=== PATIENT | female | born 1985 ===

== ENCOUNTER 2017-12-04 09:54 | Day surgery (SDC) | payer OTHER ==
--- NOTE | 2017-12-04 10:24 | EDM.PDOC ---
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 Mccollum on 11/17/2017. At that time diagnosed with miscarriage was told that she would have some more bleeding. Had clots this morning. Review of Systems: As per history of present illness and below otherwise all systems reviewed and negative. Past medical history: As per history of present illness and as reviewed below otherwise noncontributory. Surgical history: As per history of present illness and as reviewed below otherwise noncontributory. Social history: No reported history of drug or alcohol abuse. Family history: As per history of present illness and as reviewed below otherwise noncontributory. Physical exam: Alert and oriented female answering questions appropriately has good eye contact. HEENT: Atraumatic, normocehpalic, pupils reactive, negative for conjunctival pallor or scleral icterus, mucous membranes moist, throat clear, neck supple, nontender, trachea midline. Lungs: Clear to auscultation, breath sounds equal bilaterally, chest non tender. Heart: S1S2, regular, negative for clicks, rubs, or JVD. Abdomen: Soft, nondistended, nontender. Negative for masses or hepatossplenmegaly. Negative for costovertebral tenderness. Pelvis: Stable nontender. Genitourinary: Deferred. Rectal: Deferred Extremities: Atraumatic, negative for cords or calf pain. Neurovascular unremarkable. Neuro: Awake, alert, oriented. Cranial nerves II through XII unremarkable. Cerebellum unremarkable. Motor and sensory unremarkable throughout. Exam nonfocal. Have notified 10:48 Dr. Mccollum that his patient is here she has heavy bleeding and increased pain heart rates elevated 150s, with Dr. Bernal verified to Dr. Mccollum pt is tachycardic., in pain and has vaginal bleeding. 11:32 Dr. Mccollum here. Procedure per Dr. Mccollum to remove products of conception ( SEE DICTATION OF DR. Mccollum) Orders per Dr. Mccollum Metergine: 0.2 mg if patient is doing well after 45 minutes may send her home. Any increased bleeding return to the emergency room Dr. Mccollum tomorrow if having any bleeding. 12:42 patient up tho the bathroom vaginal bleeding blood pressure dropped 98/61 patient placed in Trendelenburg are normal saline 5002. Dr. Mccollum notified of the patient and desire for observation he is agreeable to this course of action. Further discussion with the patient refuses admission to and is requesting a different doctor or transfer to different facility. Have discussed this with who has involved the dials supervisor and administration. Administration has approved for the ER to contact [facility], Dr. Lam , who will graciously assumed care of this patient. Dr. Bernal has contacted Dr. Mccollum regarding the situation. Have contacted Dr. Lam regarding patient blood pressure stabilized heart rate in the 150s. Ultrasound is at bedside at this time. She requested to be notified with the results of the ultrasound. Dr. Lam here and has assumed care of this [id number] Diagnostics: [CBC CMP UA quantitative hCG] Therapeutics: []Morphine 2 mg IV Normal saline 500 mg 2 Impression: [Miscarriage/ AB] Plan: []refer for observation to Dr. Lam. Definitive disposition and diagnosis as appropriate pending reevaluation and review of above. Onset: Gradual Duration: Day(s):, Getting Worse, Heavy Location: Reports: Abdomen Quality: Reports: Same as Previous Episode Severity: Moderate Improves with: Reports: None Worsens with: Reports: None cramping Pain Score (Numeric/FACES): 5 - Related Data Allergies Allergy/AdvReac Type Severity Reaction Status Date / Time Sulfa (Sulfonamide Allergy Vomiting Verified 12/04/17 10:05 Antibiotics) Home Meds: Home Meds . 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 ED EXAM - Physical Exam Exam: See Below (see dictation) Course - Vital Signs Last Recorded V/S: Last Vital Signs Temp 36.8 C 12/04/17 10:06 Pulse 110 H 12/04/17 15:08 Resp 24 H 12/04/17 15:08 BP 115/68 12/04/17 13:00 Pulse Ox 97 12/04/17 15:08 - Orders/Labs/Meds Orders: Active Orders 24 hr Category Date Time Status Admission Status [Patient Status] [ADT] Routine ADT 12/04/17 13:10 Active OB Transvaginal [US] Stat Exams 12/04/17 13:12 Taken RED BLOOD CELLS LP [BBK] Stat Lab 12/04/17 10:05 Results TYPE AND SCREEN [BBK] Stat Lab 12/04/17 10:05 Results UA W/MICROSCOPIC [URIN] Stat Lab 12/04/17 10:18 Ordered Doxycycline [Vibramycin] 100 mg Med 12/04/17 14:45 Active Sodium Chloride 0.9% [Normal Saline] 100 ml IV Q12H Medication Orders Doxycycline Hyclate 100 mg/ (Sodium Chloride) 100 mls @ 100 mls/hr IV Q12H LAKHWINDER Last Admin: 12/04/17 15:02 Dose: Labs: Laboratory Tests 12/04/17 12/04/17 12/04/17 Range/Units 10:05 10:15 10:15 WBC 8.48 (4.0-11.0) K/uL RBC 4.18 L (4.30-5.90) M/uL Hgb 11.6 L (12.0-16.0) g/dL Hct 34.4 L (36.0-46.0) % MCV 82.3 (80.0-98.0) fL MCH 27.8 (27.0-32.0) pg MCHC 33.7 (31.0-37.0) g/dL RDW Std Deviation 45.9 (28.0-62.0) fl RDW Coeff of Trixie 16 H (11.0-15.0) % Plt Count 295 (150-400) K/uL MPV 10.30 (7.40-12.00) fL Neut % (Auto) 68.1 (48.0-80.0) % Lymph % (Auto) 24.2 (16.0-40.0) % [place] % (Auto) 5.7 (0.0-15.0) % Eos % (Auto) 1.8 (0.0-7.0) % Baso % (Auto) 0.2 (0.0-1.5) % Neut # (Auto) 5.8 H (1.4-5.7) K/uL Lymph # (Auto) 2.1 (0.6-2.4) K/uL [place] # (Auto) 0.5 (0.0-0.8) K/uL Eos # (Auto) 0.2 (0.0-0.7) K/uL Baso # (Auto) 0.0 (0.0-0.1) K/uL Nucleated RBC % 0.0 /100WBC Nucleated RBCs # 0 K/uL Sodium 138 (136-146) mmol/L Potassium 4.1 (3.5-5.1) mmol/L Chloride 110 (98-110) mmol/L Carbon Dioxide 20 L (21-31) mmol/L BUN 8 (6.0-23.0) mg/dL Creatinine 0.6 (0.6-1.5) mg/dL Est Cr Clr Drug Dosing 129.69 mL/min Estimated GFR (MDRD) > 60.0 ml/min Glucose 93 (60-110) mg/dL Calcium 9.0 (8.8-10.8) mg/dL Total Bilirubin 0.3 (0.1-1.5) mg/dL AST 12 (5-40) IU/L ALT 9 (8-54) IU/L Alkaline Phosphatase 71 (40-150) Total Protein 6.5 (6.0-8.0) g/dL Albumin 3.7 (3.5-5.0) g/dL Globulin 2.8 (2.0-3.5) g/dL Albumin/Globulin Ratio 1.3 (1.3-2.8) HCG, Quant 2594.2 mIU/mL Blood Type A POSITIVE Antibody Screen NEGATIVE Crossmatch See Detail 12/04/17 Range/Units 13:46 WBC 14.97 H (4.0-11.0) K/uL RBC 3.72 L (4.30-5.90) M/uL Hgb 10.1 L (12.0-16.0) g/dL Hct 30.6 L (36.0-46.0) % MCV 82.3 (80.0-98.0) fL MCH 27.2 (27.0-32.0) pg MCHC 33.0 (31.0-37.0) g/dL RDW Std Deviation 47.8 (28.0-62.0) fl RDW Coeff of Trixie 16 H (11.0-15.0) % Plt Count 227 (150-400) K/uL MPV 10.20 (7.40-12.00) fL Neut % (Auto) 77.1 (48.0-80.0) % Lymph % (Auto) 16.4 (16.0-40.0) % [place] % (Auto) 5.8 (0.0-15.0) % Eos % (Auto) 0.5 (0.0-7.0) % Baso % (Auto) 0.2 (0.0-1.5) % Neut # (Auto) 11.5 H (1.4-5.7) K/uL Lymph # (Auto) 2.5 H (0.6-2.4) K/uL [place] # (Auto) 0.9 H (0.0-0.8) K/uL Eos # (Auto) 0.1 (0.0-0.7) K/uL Baso # (Auto) 0.0 (0.0-0.1) K/uL Nucleated RBC % 0.0 /100WBC Nucleated RBCs # 0 K/uL Sodium (136-146) mmol/L Potassium (3.5-5.1) mmol/L Chloride (98-110) mmol/L Carbon Dioxide (21-31) mmol/L BUN (6.0-23.0) mg/dL Creatinine (0.6-1.5) mg/dL Est Cr Clr Drug Dosing mL/min Estimated GFR (MDRD) ml/min Glucose (60-110) mg/dL Calcium (8.8-10.8) mg/dL Total Bilirubin (0.1-1.5) mg/dL AST (5-40) IU/L ALT (8-54) IU/L Alkaline Phosphatase (40-150) Total Protein (6.0-8.0) g/dL Albumin (3.5-5.0) g/dL Globulin (2.0-3.5) g/dL Albumin/Globulin Ratio (1.3-2.8) HCG, Quant mIU/mL Blood Type Antibody Screen Crossmatch Meds: Medications Generic Name Dose Route Start Last Admin Trade Name Hina PRN Reason Stop Dose Admin Doxycycline Hyclate 100 mg/ 100 mls @ 100 mls/hr 12/04/17 14:45 12/04/17 15: 02 Sodium Chloride IV Not Given Q12H LAKHWINDER Discontinued Medications Generic Name Dose Route Start Last Admin Trade Name Hina PRN Reason Stop Dose Admin Cefazolin Sodium Confirm 12/04/17 15:19 Ancef Administered 12/04/17 15:20 Dose 2 gm .ROUTE .STK-MED ONE Cefazolin Sodium/Dextrose Confirm 12/04/17 14:49 12/04/17 15:01 Ancef Administered 12/04/17 14:50 Not Given Dose 2 gm IV .STK-MED ONE Ephedrine Sulfate Confirm 12/04/17 15:28 Ephedrine Sulfate Administered 12/04/17 15:29 Dose 50 mg .ROUTE .STK-MED ONE Fentanyl Confirm 12/04/17 15:19 Sublimaze Administered 12/04/17 15:20 Dose 250 mcg .ROUTE .STK-MED ONE Hydromorphone HCl 1 mg 12/04/17 14:48 12/04/17 14:55 Dilaudid IM 12/04/17 14:49 1 mg ONETIME ONE Administration Hydromorphone HCl Confirm 12/04/17 14:49 12/04/17 15:01 Dilaudid Administered 12/04/17 14:50 Not Given Dose 1 mg .ROUTE .STK-MED ONE Sodium Chloride 1,000 mls @ 999 mls/hr 12/04/17 10:43 12/04/17 10:45 Normal Saline IV 12/04/17 11:43 999 mls/hr STAT ONE Administration Cefazolin Sodium/Dextrose 2 gm 50 mls @ 100 mls/hr 12/04/17 14:48 12/04/17 15 :01 / Premix IV 12/04/17 15:17 100 mls/hr ONETIME ONE Administration Sodium Chloride Confirm 12/04/17 15:19 Normal Saline Administered 12/04/17 15:20 Dose 20 mls @ as directed .ROUTE .STK-MED ONE Lidocaine Confirm 12/04/17 15:18 Xylocaine-Mpf 2% Administered 12/04/17 15:19 Dose 5 ml .ROUTE .STK-MED ONE Methylergonovine Maleate 0.2 mg 12/04/17 12:00 12/04/17 12:18 Methergine IM 12/04/17 12:01 0.2 mg NOW STA Administration Methylergonovine Maleate 0.2 mg 12/04/17 13:11 12/04/17 13:30 Methergine IM 12/04/17 13:12 0.2 mg Q4H ONE Administration Methylergonovine Maleate Confirm 12/04/17 15:08 Methergine Administered 12/04/17 15:09 Dose 0.2 mg .ROUTE .STK-MED ONE Midazolam HCl Confirm 12/04/17 15:19 Versed 1 Mg/Ml Administered 12/04/17 15:20 Dose 2 mg .ROUTE .STK-MED ONE Misoprostol Confirm 12/04/17 15:07 Cytotec Administered 12/04/17 15:08 Dose 1,000 mcg .ROUTE .STK-MED ONE Morphine Sulfate 2 mg 12/04/17 10:43 12/04/17 10:55 Morphine IVPUSH 12/04/17 10:44 2 mg ONETIME ONE Administration Morphine Sulfate Confirm 12/04/17 12:50 12/04/17 14:01 Morphine Administered 12/04/17 12:51 Not Given Dose 2 mg .ROUTE .STK-MED ONE Morphine Sulfate Confirm 12/04/17 13:46 12/04/17 15:01 Morphine Administered 12/04/17 13:47 Not Given Dose 2 mg .ROUTE .STK-MED ONE Morphine Sulfate 2 mg 12/04/17 13:00 12/04/17 13:00 Morphine IVPUSH 12/04/17 13:01 2 mg ONETIME ONE Administration Morphine Sulfate 2 mg 12/04/17 13:59 12/04/17 13:30 Morphine IVPUSH 12/04/17 14:00 2 mg ONETIME ONE Administration Ondansetron HCl 4 mg 12/04/17 10:44 12/04/17 10:55 Zofran IVPUSH 12/04/17 10:45 4 mg ONETIME ONE Administration Ondansetron HCl Confirm 12/04/17 15:18 Zofran Administered 12/04/17 15:19 Dose 4 mg .ROUTE .STK-MED ONE Propofol Confirm 12/04/17 15:18 Diprivan 20 Ml Administered 12/04/17 15:19 Dose 200 mg .ROUTE .STK-MED ONE Rocuronium [place] Confirm 12/04/17 15:18 Zemuron Administered 12/04/17 15:19 Dose 100 mg .ROUTE .STK-MED ONE Succinylcholine Chloride Confirm 12/04/17 15:18 Succinylcholine In Ns Pf Administered 12/04/17 15:19 Dose 200 mg .ROUTE .STK-MED ONE Tranexamic Acid Confirm 12/04/17 15:20 Cyklokapron Administered 12/04/17 15:21 Dose 2,000 mg .ROUTE .STK-MED ONE Departure - Departure Time of Disposition: 15:45 Disposition: Still A Patient 30 Condition: Fair Clinical Impression: Incomplete - Discharge Information - My Orders Last 24 Hours: My Active Orders 12/04/17 10:05 TYPE AND SCREEN [BBK] Stat 12/04/17 10:18 UA W/MICROSCOPIC [URIN] Stat 12/04/17 13:12 OB Transvaginal [US] Stat - Assessment/Plan Last 24 Hours: My Active Orders 12/04/17 10:05 TYPE AND SCREEN [BBK] Stat 12/04/17 10:18 UA W/MICROSCOPIC [URIN] Stat 12/04/17 13:12 OB Transvaginal [US] Stat
[2017-12-04 10:42] LABS: CHLORIDE,CL 110 mmol/L (98-110); SODIUM,NA 138 mmol/L (136-146)
[2017-12-04] MEDS ORDERED: Sodium Chloride 0.9% 1,000 ML IV ONE (10:43)
[2017-12-04] MEDS ORDERED: Morphine 2 MG/ML Syringe IVPUSH ONE ×3 (10:43→13:59)
[2017-12-04] MEDS ORDERED: Ondansetron 4 MG/2 ML SDV IVPUSH ONE (10:44)
[2017-12-04] MEDS ORDERED: Methylergonovine 0.2 MG/1 ML Amp IM STA (12:00)
[2017-12-04] MEDS ORDERED: Morphine 2 MG/ML Syringe ONE ×2 (12:50→13:46)
[2017-12-04] MEDS ORDERED: Sodium Chloride 0.9% 500 ML IV STA (13:00)
[2017-12-04] MEDS ORDERED: Methylergonovine 0.2 MG/1 ML Amp IM ONE (13:11)
[2017-12-04] MEDS ORDERED: Doxycycline 100 MG in Sodium Chloride 0.9% 100 ML IV SCH (14:45)
[2017-12-04] MEDS ORDERED: HYDROmorphone 1 MG/ML Syringe IM ONE (14:48)
[2017-12-04] MEDS ORDERED: ceFAZolin 2 GM in Premix Bag 1 BAG IV ONE (14:48)
[2017-12-04] MEDS ORDERED: HYDROmorphone 1 MG/ML Syringe ONE (14:49)
[2017-12-04] MEDS ORDERED: ceFAZolin/Dextrose,Iso-Osmotic 2 GM/50 ML Duplex Bag IV ONE (14:49)
[2017-12-04] MEDS ORDERED: Misoprostol 200 MCG Tab ONE (15:07)
[2017-12-04] MEDS ORDERED: Methylergonovine 0.2 MG/1 ML Amp ONE (15:08)
--- NOTE | 2017-12-04 15:09 | PCM.PREANE ---
Preanesthetic Assessment - Anesthesia/Transfusion/Family Hx Anesthesia History: Prior Anesthesia Without Reaction Other Type of Anesthesia Reaction Comment: Pt states she has been told in the past she is a "bad bleeder" during surg Family History of Anesthesia Reaction: No Transfusion History: No Prior Transfusion(s) - Review of Systems General: No Symptoms Pulmonary: No Symptoms Cardiovascular: No Symptoms Gastrointestinal: No Symptoms Neurological: No Symptoms Other: Reports: None - Physical Assessment NPO Status Date: 12/04/17 NPO Status Time: 09:00 Pulse: 110 O2 Sat by Pulse Oximetry: 97 Respiratory Rate: 24 Vital Signs: Last Vital Signs Temp 98.2 F 12/04/17 10:06 Pulse 89 12/04/17 13:00 Resp 24 H 12/04/17 12:45 BP 115/68 12/04/17 13:00 Pulse Ox 97 12/04/17 12:45 Height: 5 ft 7 in Weight: 77.111 kg ASA Class: 2E Mental Status: Alert & Oriented x3 Airway Class: Mallampati = 2 Dentition: Reports: Normal Dentition Thyro-Mental Finger Breadths: 3 Mouth Opening Finger Breadths: 3 ROM/Head Extension: Full Lungs: Clear to Auscultation, Normal Respiratory Effort Cardiovascular: Regular Rate, Regular Rhythm, Tachycardia - Lab Values: Laboratory Last Values WBC 14.97 K/uL (4.0-11.0) H 12/04/17 13:46 RBC 3.72 M/uL (4.30-5.90) L 12/04/17 13:46 Hgb 10.1 g/dL (12.0-16.0) L 12/04/17 13:46 Hct 30.6 % (36.0-46.0) L 12/04/17 13:46 MCV 82.3 fL (80.0-98.0) 12/04/17 13:46 MCH 27.2 pg (27.0-32.0) 12/04/17 13:46 MCHC 33.0 g/dL (31.0-37.0) 12/04/17 13:46 RDW Std Deviation 47.8 fl (28.0-62.0) 12/04/17 13:46 RDW Coeff of Trixie 16 % (11.0-15.0) H 12/04/17 13:46 Plt Count 227 K/uL (150-400) 12/04/17 13:46 MPV 10.20 fL (7.40-12.00) 12/04/17 13:46 Neut % (Auto) 77.1 % (48.0-80.0) 12/04/17 13:46 Lymph % (Auto) 16.4 % (16.0-40.0) 12/04/17 13:46 [place] % (Auto) 5.8 % (0.0-15.0) 12/04/17 13:46 Eos % (Auto) 0.5 % (0.0-7.0) 12/04/17 13:46 Baso % (Auto) 0.2 % (0.0-1.5) 12/04/17 13:46 Neut # (Auto) 11.5 K/uL (1.4-5.7) H 12/04/17 13:46 Lymph # (Auto) 2.5 K/uL (0.6-2.4) H 12/04/17 13:46 [place] # (Auto) 0.9 K/uL (0.0-0.8) H 12/04/17 13:46 Eos # (Auto) 0.1 K/uL (0.0-0.7) 12/04/17 13:46 Baso # (Auto) 0.0 K/uL (0.0-0.1) 12/04/17 13:46 Nucleated RBC % 0.0 /100WBC 12/04/17 13:46 Nucleated RBCs # 0 K/uL 12/04/17 13:46 Sodium 138 mmol/L (136-146) 12/04/17 10:15 Potassium 4.1 mmol/L (3.5-5.1) 12/04/17 10:15 Chloride 110 mmol/L (98-110) 12/04/17 10:15 Carbon Dioxide 20 mmol/L (21-31) L 12/04/17 10:15 BUN 8 mg/dL (6.0-23.0) 12/04/17 10:15 Creatinine 0.6 mg/dL (0.6-1.5) 12/04/17 10:15 Est Cr Clr Drug Dosing 129.69 mL/min 12/04/17 10:15 Estimated GFR (MDRD) > 60.0 ml/min 12/04/17 10:15 Glucose 93 mg/dL (60-110) 12/04/17 10:15 Calcium 9.0 mg/dL (8.8-10.8) 12/04/17 10:15 Total Bilirubin 0.3 mg/dL (0.1-1.5) 12/04/17 10:15 AST 12 IU/L (5-40) 12/04/17 10:15 ALT 9 IU/L (8-54) 12/04/17 10:15 Alkaline Phosphatase 71 (40-150) 12/04/17 10:15 Total Protein 6.5 g/dL (6.0-8.0) 12/04/17 10:15 Albumin 3.7 g/dL (3.5-5.0) 12/04/17 10:15 Globulin 2.8 g/dL (2.0-3.5) 12/04/17 10:15 Albumin/Globulin Ratio 1.3 (1.3-2.8) 12/04/17 10:15 HCG, Quant 2594.2 mIU/mL 12/04/17 10:15 Blood Type A POSITIVE 12/04/17 10:05 Antibody Screen NEGATIVE 12/04/17 10:05 Crossmatch See Detail 12/04/17 10:05 - Allergies Allergies/Adverse Reactions: Allergies Allergy/AdvReac Type Severity Reaction Status Date / Time Sulfa (Sulfonamide Allergy Vomiting Verified 12/04/17 10:05 Antibiotics) - Acknowledgements Anesthesia Type Planned: General Anesthesia Pt an Appropriate Candidate for the Planned Anesthesia: Yes Alternatives and Risks of Anesthesia Discussed w Pt/Guardian: Yes Pt/Guardian Understands and Agrees with Anesthesia Plan: Yes PreAnesthesia Questionnaire - Past Health History Medical/Surgical History: Denies Medical/Surgical History HEENT History: Reports: None Cardiovascular History: Reports: None Respiratory History: Reports: None Gastrointestinal History: Reports: GERD Genitourinary History: Reports: None 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 , 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 LMP (Approximate): Musculoskeletal History: Reports: None Neurological History: Reports: None Psychiatric History: Reports: None Endocrine/Metabolic History: Reports: None Hematologic History: Reports: Anemia, Other (See Below) (Acute bleeding) Immunologic History: Reports: None Oncologic (Cancer) History: Reports: None Dermatologic History: Reports: None - Infectious Disease History Infectious Disease History: Reports: None - Past Surgical History Other Surgical History Comment: Liposuction - SUBSTANCE USE Smoking Status *Q: Never Smoker Days Per Week of Alcohol Use: 1 Number of Drinks Per Day: 2 Total Drinks Per Week: 2 Recreational Drug Use History: No - HOME MEDS Home Medications: Home Meds . [No Known Home Meds] 12/04/17 [History] - CURRENT (IN HOUSE) MEDS Current Meds: Current Medications Doxycycline Hyclate 100 mg/ (Sodium Chloride) 100 mls @ 100 mls/hr IV Q12H LAKHWINDER Last Admin: 12/04/17 15:02 Dose: Not Given Cefazolin Sodium/Dextrose 2 gm (/ Premix) 50 mls @ 100 mls/hr IV ONETIME ONE Stop: 12/04/17 15:17 Last Admin: 12/04/17 15:01 Dose: 100 mls/hr Discontinued Medications Cefazolin Sodium/Dextrose (Ancef) Confirm Administered Dose 2 gm IV .STK-MED ONE Stop: 12/04/17 14:50 Last Admin: 12/04/17 15:01 Dose: Not Given Hydromorphone HCl (Dilaudid) 1 mg IM ONETIME ONE Stop: 12/04/17 14:49 Last Admin: 12/04/17 14:55 Dose: 1 mg Hydromorphone HCl (Dilaudid) Confirm Administered Dose 1 mg .ROUTE .STK-MED ONE Stop: 12/04/17 14:50 Last Admin: 12/04/17 15:01 Dose: Not Given Sodium Chloride (Normal Saline) 1,000 mls @ 999 mls/hr IV STAT ONE Stop: 12/04/17 11:43 Last Admin: 12/04/17 10:45 Dose: 999 mls/hr Methylergonovine Maleate (Methergine) 0.2 mg IM NOW STA Stop: 12/04/17 12:01 Last Admin: 12/04/17 12:18 Dose: 0.2 mg Methylergonovine Maleate (Methergine) 0.2 mg IM Q4H ONE Stop: 12/04/17 13:12 Last Admin: 12/04/17 13:30 Dose: 0.2 mg Morphine Sulfate (Morphine) 2 mg IVPUSH ONETIME ONE Stop: 12/04/17 10:44 Last Admin: 12/04/17 10:55 Dose: 2 mg Morphine Sulfate (Morphine) Confirm Administered Dose 2 mg .ROUTE .STK-MED ONE Stop: 12/04/17 12:51 Last Admin: 12/04/17 14:01 Dose: Not Given Morphine Sulfate (Morphine) Confirm Administered Dose 2 mg .ROUTE .STK-MED ONE Stop: 12/04/17 13:47 Last Admin: 12/04/17 15:01 Dose: Not Given Morphine Sulfate (Morphine) 2 mg IVPUSH ONETIME ONE Stop: 12/04/17 13:01 Last Admin: 12/04/17 13:00 Dose: 2 mg Morphine Sulfate (Morphine) 2 mg IVPUSH ONETIME ONE Stop: 12/04/17 14:00 Last Admin: 12/04/17 13:30 Dose: 2 mg Ondansetron HCl (Zofran) 4 mg IVPUSH ONETIME ONE Stop: 12/04/17 10:45 Last Admin: 12/04/17 10:55 Dose: 4 mg
[2017-12-04] MEDS ORDERED: Lidocaine 2% 5 ML SDV ONE (15:18)
[2017-12-04] MEDS ORDERED: Ondansetron 4 MG/2 ML SDV ONE (15:18)
[2017-12-04] MEDS ORDERED: Succinylcholine/Normal Saline 200 MG/10 ML Syringe ONE (15:18)
[2017-12-04] MEDS ORDERED: Propofol 200 MG/20 ML SDV ONE (15:18)
[2017-12-04] MEDS ORDERED: Rocuronium 10 MG/ML 10 ML Syringe ONE (15:18)
[2017-12-04] MEDS ORDERED: fentaNYL 250 MCG/5 ML SDV ONE (15:19)
[2017-12-04] MEDS ORDERED: Sodium Chloride 0.9% 20 ML ONE (15:19)
[2017-12-04] MEDS ORDERED: ceFAZolin 1 GM Vial ONE (15:19)
[2017-12-04] MEDS ORDERED: Midazolam 1 MG/ML 2 ML SDV ONE (15:19)
[2017-12-04] MEDS ORDERED: ePHEDrine 50 MG/ML SDV ONE (15:28)
[2017-12-04] MEDS ORDERED: Promethazine 25 MG/ML SDV IM ONE (16:32)
[2017-12-04] MEDS ORDERED: fentaNYL 100 MCG/2 ML SDV IVPUSH PRN (16:32)
[2017-12-04] MEDS ORDERED: Acetaminophen/oxyCODONE 325-5 MG Tab PO PRN ×2 (16:35)
[2017-12-04] MEDS ORDERED: Ibuprofen 800 MG Tab PO PRN (16:39)
--- NOTE | 2017-12-04 17:23 | PCM.POSTAN ---
POST ANESTHESIA ASSESSMENT - MENTAL STATUS Mental Status: Alert, Oriented - VITAL SIGNS Pulse Rate: 94 SaO2: 99 Resp Rate: 14 Blood Pressure: 97/53 - RESPIRATORY Respiratory Status: Respiratory Rate WNL, Airway Patent, O2 Saturation Stable - CARDIOVASCULAR CV Status: Pulse Rate WNL, Blood Pressure Stable - GASTROINTESTINAL GI Status: No Symptoms - POST OP HYDRATION Hydration Status: Adequate & Stable - OBSERVATIONS Free Text/Narrative:: Recheck H/H has dropped significantly from ER admission values. Discussed with Dr Lam and she wishes to transfuse 2 units in PACU. Both units were administered in PACU. VSS, patient was informed and agrees with the current treatment plan.
--- NOTE | 2017-12-04 17:30 | HP ---
DATE OF : 1985 PRIMARY CARE PHYSICIAN: None PCP PRESENTING COMPLAINT: Miscarriage with vaginal bleeding. HISTORY: The patient is a 32-year-old G4, P0-0-3-0, who was diagnosed with a blighted ovum on the 18 of November at a routine clinic appointment with Dr. Mccollum. Reports by dates, she is meant to be approximately 12 weeks , but she was told the gestational sac was approximately 11 weeks size. She reports that management options were discussed with her, she opted for expected management and was supposed to be returned to the clinic a week later for further discussion if she had not passed the tissue by then, but she was unable to keep that appointment. She reports that she had been spotting for over a week now and presented today to the ER due to increased bleeding with passage of clots associated with severe lower abdominal pain. On arrival to the emergency room, she was evaluated by the emergency room personnel and also was evaluated by her primary provider Dr. Mccollum, who proceeded to remove some products of conception and gave her a dose of Methergine and the bleeding slowed down. He had discussed with the patient that she could be discharged home after a period of observation in the ER with followup in the clinic. The patient reported that she continued to bleed and she got up to go to the bathroom, felt very dizzy and had a vasovagal attack, with blood pressure dropped down to the 90s over 50s and tachycardia. She also noted that her vaginal bleeding increased, so did abdominal cramps. Dr. Mccollum was called back, but this patient at this point in time refused to be evaluated by Dr. Mccollum, hence I was called in to see the patient. Dr. Mccollum did call me to inform me about his management of the patient in the ER before I proceeded to see her. The patient had a baseline hemoglobin of 11.6g/dl on arrival and when it was repeated about 2 hours later, it had dropped to 10.1g/dl and on telemetry, her heart rate was in the 120s with blood pressures maintaining around 100s over 70s. She also had a pelvic ultrasound, which I had ordered before I got to the emergency room. I reviewed, the patient was in considerable amount of pain. and I was able to retrieve products of conception from the vagina. I reviewed the sonogram images, which showed a thickened endometrial lining at 25 mm with increased vascularity suggestive of retained products of conception. 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 Last menstrual period in August 2017. In a stable relationship. Denied history of sexually transmitted disease. PAST OBSTETRIC HISTORY: including current . 2004- Induced TOP(Ist trimester) 2013- Spontaneous miscarriage at about 8 weeks gestation 2017- demise at 21 weeks due to placental abruption PAST MEDICAL HISTORY: None. PAST SURGICAL HISTORY: D and C for retained placenta in 2017 Liposuction. FAMILY HISTORY: Noncontributory. SOCIAL HISTORY: Non smoker, denies use of recreational or illicit drugs. PHYSICAL EXAMINATION: GENERAL: The patient is alert and oriented, in painful distress lying in a position. VITAL SIGNS: Temp: 36.8, AR: 125 on telemetry, BP: 115/60,saturation 97% on room air. CHEST: Clear to auscultation bilaterally. CARDIOVASCULAR: Heart sounds 1 and 2. No murmurs. ABDOMEN: Soft. Tender lower abdominal region with guarding, but no rebound tenderness. SPECULUM: Approximately 20 mL of blood clots removed. Products of conception removed from the vagina. Products of conception visible at the cervical os which I was unable to retrieved with a ring forceps. Cervical os approximately 2-3 cm dilated. LABORATORY RESULTS: WBC: 14.9, Hemoglobin of 10.1 with hematocrit of 30.6, Platelets of 227, Chemistry was normal. Beta HCG quantitative was 2594. She is A positive. ASSESSMENT AND PLAN: A 32-year-old G4, P0-0-3-0 with incomplete spontaneous miscarriage. Management options were reviewed with the patient at this stage. I explained that she does have retained products of conception, given the clinical picture I would recommend we proceed with Dilatation and curettage to prevent further blood loss. She seemed hesitant about surgery. I also reviewed medical option with her, which would entail Cytotec with pain management while she is in the hospital. Benefits and risks of both procedures were discussed and reviewed with her and her partner. She opted to proceed with surgical management. The risk of D and C that was discussed include, but not limited to bleeding, injury to the uterus and infection. Ancef was given preop. She will be observed for a couple of hours after the surgery and should be able to go home later on tonight as long as she is hemodynamically stable. The patient also understands that there is an increased risk of her having blood transfusion. We will proceed with the procedure as above. JASMINE / ALVARO /[id number] MTDD
--- NOTE | 2017-12-04 21:12 | OR ---
SURGEON: Majo Lam MD DATE OF PROCEDURE: 12/04/2017 PREOPERATIVE DIAGNOSIS: Incomplete spontaneous . POSTOP DIAGNOSIS: Incomplete spontaneous . PROCEDURE: Suction, dilatation, and curettage. ANESTHESIA: General endotracheal. ESTIMATED BLOOD LOSS: 300 mL. IV FLUIDS: 2200mls of crystalloids COMPLICATIONS: None. DISPOSITION: The patient is stable to recovery room. PATHOLOGY: Products of conception FINDINGS The patient was found to have at least 100 mL of clotted blood mixed with tissue in the vaginal vault with significant amount of products of conception at the os. The os was dilated to 3 cm. BRIEF HISTORY: The patient is a 32-year-old, G4, P0-0-3-0, who presented to the ER with ongoing miscarriage and was found to have incomplete miscarriage with significant amount of retained products of conception. With on going bleeding, tachycardia and low blood pressure, she accepted to proceed with surgical management. The risks and benefits of the procedure were discussed in detail with her including but not limited to bleeding, infection, uterine perforation with injury to surrounding organs. DESCRIPTION OF PROCEDURE: She was taken to the operating room, where induction of general anesthesia was performed without difficulty. She was placed in dorsal lithotomy position and prepped and draped in normal sterile fashion for vaginal surgery. Examination under anesthesia revealed the aforementioned findings. Appropriate time-out was held. The bivalve speculum was then placed into the vagina. Products and blood clots were removed.The anterior lip of the cervix was grasped with ring forceps. Then, using a #11 curved plastic suction cannula, suction curettage was performed. Copious amount of products of conception were retrieved. This was then followed by gentle curettage using a wide bore curette until the gritty sensation of the uterus was felt. Bimanual uterine massage was performed, and the uterus was well contracted. A transabdominal ultrasound was performed, the uterus was empty with an endometrial lining was found of 8 mm. All instruments were removed from the patient's vagina. All instrument, sponge counts were correct at the end of the procedure. The patient was noted to be hypotensive during the procedure. Blood pressures of 70s/50s. A 2nd IV line was inserted by Anesthesia with bolus of IV fluid given. She will get a repeat H and H performed in the recovery room. She was taken to the recovery room in stable condition. JASMINE / MODJack /[id number] SONIDO
[2017-12-05] MEDS ORDERED: Acetaminophen 325 MG Tab PO ONE (08:06)
--- NOTE | 2017-12-05 08:11 | PCM.SURGPN ---
- General Info POD#: 0 Functional Status: Reports: Pain Controlled, Tolerating Diet, Ambulating, Urinating, Other (Minimal vaginal bleeding) - Review of Systems General: Denies: Weakness, Fatigue, Malaise HEENT: Reports: Headaches Pulmonary: Denies: Shortness of Breath, Pleuritic Chest Pain Cardiovascular: Denies: Chest Pain, Palpitations, Dyspnea on Exertion, Lightheadedness Gastrointestinal: Reports: No Symptoms Genitourinary: Denies: Dysuria Musculoskeletal: Reports: No Symptoms Skin: Reports: No Symptoms Neurological: Reports: No Symptoms Psychiatric: Reports: No Symptoms - Patient Data Vitals - Most Recent: Last Vital Signs Temp 36.6 C 12/05/17 03:46 Pulse 80 12/05/17 03:46 Resp 18 12/05/17 03:46 BP 90/50 L 12/05/17 03:46 Pulse Ox 96 12/05/17 03:46 Weight - Most Recent: 170 lb I&O - Last 24 Hours: Intake & Output 12/04/17 12/05/17 12/05/17 22:59 06:59 14:59 Intake Total 2800 500 Output Total 50 600 Balance 2750 -100 Lab Results Last 24 Hrs: Laboratory Results - last 24 hr 12/04/17 12/04/17 12/04/17 Range/Units 10:05 10:15 10:15 WBC 8.48 (4.0-11.0) K/uL RBC 4.18 L (4.30-5.90) M/uL Hgb 11.6 L (12.0-16.0) g/dL Hct 34.4 L (36.0-46.0) % MCV 82.3 (80.0-98.0) fL MCH 27.8 (27.0-32.0) pg MCHC 33.7 (31.0-37.0) g/dL RDW Std Deviation 45.9 (28.0-62.0) fl RDW Coeff of Trixie 16 H (11.0-15.0) % Plt Count 295 (150-400) K/uL MPV 10.30 (7.40-12.00) fL Neut % (Auto) 68.1 (48.0-80.0) % Lymph % (Auto) 24.2 (16.0-40.0) % [place] % (Auto) 5.7 (0.0-15.0) % Eos % (Auto) 1.8 (0.0-7.0) % Baso % (Auto) 0.2 (0.0-1.5) % Neut # (Auto) 5.8 H (1.4-5.7) K/uL Lymph # (Auto) 2.1 (0.6-2.4) K/uL [place] # (Auto) 0.5 (0.0-0.8) K/uL Eos # (Auto) 0.2 (0.0-0.7) K/uL Baso # (Auto) 0.0 (0.0-0.1) K/uL Nucleated RBC % 0.0 /100WBC Nucleated RBCs # 0 K/uL Sodium 138 (136-146) mmol/L Potassium 4.1 (3.5-5.1) mmol/L Chloride 110 (98-110) mmol/L Carbon Dioxide 20 L (21-31) mmol/L BUN 8 (6.0-23.0) mg/dL Creatinine 0.6 (0.6-1.5) mg/dL Est Cr Clr Drug Dosing 129.69 mL/min Estimated GFR (MDRD) > 60.0 ml/min Glucose 93 (60-110) mg/dL Calcium 9.0 (8.8-10.8) mg/dL Total Bilirubin 0.3 (0.1-1.5) mg/dL AST 12 (5-40) IU/L ALT 9 (8-54) IU/L Alkaline Phosphatase 71 (40-150) Total Protein 6.5 (6.0-8.0) g/dL Albumin 3.7 (3.5-5.0) g/dL Globulin 2.8 (2.0-3.5) g/dL Albumin/Globulin Ratio 1.3 (1.3-2.8) HCG, Quant 2594.2 mIU/mL Urine Color Urine Appearance Urine pH (5.0-8.0) Ur Specific Union (1.001-1.035) Urine Protein (NEGATIVE) mg/dL Urine Glucose (UA) (NEGATIVE) mg/dL Urine Ketones (NEGATIVE) mg/dL Urine Occult Blood (NEGATIVE) Urine Nitrite (NEGATIVE) Urine Bilirubin (NEGATIVE) Urine Urobilinogen (<2.0) EU/dL Ur Leukocyte Esterase (NEGATIVE) Urine RBC (0-2/HPF) Urine WBC (0-5/HPF) Ur Epithelial Cells (NONE-FEW) Urine Bacteria (NEGATIVE) Blood Type A POSITIVE Antibody Screen NEGATIVE Crossmatch See Detail 12/04/17 12/04/17 12/04/17 Range/Units 13:46 16:33 19:45 WBC 14.97 H (4.0-11.0) K/uL RBC 3.72 L (4.30-5.90) M/uL Hgb 10.1 L 7.4 L (12.0-16.0) g/dL Hct 30.6 L 22.4 L (36.0-46.0) % MCV 82.3 (80.0-98.0) fL MCH 27.2 (27.0-32.0) pg MCHC 33.0 (31.0-37.0) g/dL RDW Std Deviation 47.8 (28.0-62.0) fl RDW Coeff of Trixie 16 H (11.0-15.0) % Plt Count 227 (150-400) K/uL MPV 10.20 (7.40-12.00) fL Neut % (Auto) 77.1 (48.0-80.0) % Lymph % (Auto) 16.4 (16.0-40.0) % [place] % (Auto) 5.8 (0.0-15.0) % Eos % (Auto) 0.5 (0.0-7.0) % Baso % (Auto) 0.2 (0.0-1.5) % Neut # (Auto) 11.5 H (1.4-5.7) K/uL Lymph # (Auto) 2.5 H (0.6-2.4) K/uL [place] # (Auto) 0.9 H (0.0-0.8) K/uL Eos # (Auto) 0.1 (0.0-0.7) K/uL Baso # (Auto) 0.0 (0.0-0.1) K/uL Nucleated RBC % 0.0 /100WBC Nucleated RBCs # 0 K/uL Sodium (136-146) mmol/L Potassium (3.5-5.1) mmol/L Chloride (98-110) mmol/L Carbon Dioxide (21-31) mmol/L BUN (6.0-23.0) mg/dL Creatinine (0.6-1.5) mg/dL Est Cr Clr Drug Dosing mL/min Estimated GFR (MDRD) ml/min Glucose (60-110) mg/dL Calcium (8.8-10.8) mg/dL Total Bilirubin (0.1-1.5) mg/dL AST (5-40) IU/L ALT (8-54) IU/L Alkaline Phosphatase (40-150) Total Protein (6.0-8.0) g/dL Albumin (3.5-5.0) g/dL Globulin (2.0-3.5) g/dL Albumin/Globulin Ratio (1.3-2.8) HCG, Quant mIU/mL Urine Color YELLOW Urine Appearance SLT CLOUDY Urine pH 5.5 (5.0-8.0) Ur Specific [place] >= 1.030 (1.001-1.035) Urine Protein TRACE (NEGATIVE) mg/dL Urine Glucose (UA) NEGATIVE (NEGATIVE) mg/dL Urine Ketones TRACE H (NEGATIVE) mg/dL Urine Occult Blood LARGE H (NEGATIVE) Urine Nitrite NEGATIVE (NEGATIVE) Urine Bilirubin NEGATIVE (NEGATIVE) Urine Urobilinogen 0.2 (<2.0) EU/dL Ur Leukocyte Esterase NEGATIVE (NEGATIVE) Urine RBC >100 H (0-2/HPF) Urine WBC 0-3 (0-5/HPF) Ur Epithelial Cells OCCASIONAL (NONE-FEW) Urine Bacteria FEW (NEGATIVE) Blood Type Antibody Screen Crossmatch 12/05/17 Range/Units 05:03 WBC (4.0-11.0) K/uL RBC (4.30-5.90) M/uL Hgb 8.3 L (12.0-16.0) g/dL Hct 24.6 L (36.0-46.0) % MCV (80.0-98.0) fL MCH (27.0-32.0) pg MCHC (31.0-37.0) g/dL RDW Std Deviation (28.0-62.0) fl RDW Coeff of Trixie (11.0-15.0) % Plt Count (150-400) K/uL MPV (7.40-12.00) fL Neut % (Auto) (48.0-80.0) % Lymph % (Auto) (16.0-40.0) % [place] % (Auto) (0.0-15.0) % Eos % (Auto) (0.0-7.0) % Baso % (Auto) (0.0-1.5) % Neut # (Auto) (1.4-5.7) K/uL Lymph # (Auto) (0.6-2.4) K/uL [place] # (Auto) (0.0-0.8) K/uL Eos # (Auto) (0.0-0.7) K/uL Baso # (Auto) (0.0-0.1) K/uL Nucleated RBC % /100WBC Nucleated RBCs # K/uL Sodium (136-146) mmol/L Potassium (3.5-5.1) mmol/L Chloride (98-110) mmol/L Carbon Dioxide (21-31) mmol/L BUN (6.0-23.0) mg/dL Creatinine (0.6-1.5) mg/dL Est Cr Clr Drug Dosing mL/min Estimated GFR (MDRD) ml/min Glucose (60-110) mg/dL Calcium (8.8-10.8) mg/dL Total Bilirubin (0.1-1.5) mg/dL AST (5-40) IU/L ALT (8-54) IU/L Alkaline Phosphatase (40-150) Total Protein (6.0-8.0) g/dL Albumin (3.5-5.0) g/dL Globulin (2.0-3.5) g/dL Albumin/Globulin Ratio (1.3-2.8) HCG, Quant mIU/mL Urine Color Urine Appearance Urine pH (5.0-8.0) Ur Specific [place] (1.001-1.035) Urine Protein (NEGATIVE) mg/dL Urine Glucose (UA) (NEGATIVE) mg/dL Urine Ketones (NEGATIVE) mg/dL Urine Occult Blood (NEGATIVE) Urine Nitrite (NEGATIVE) Urine Bilirubin (NEGATIVE) Urine Urobilinogen (<2.0) EU/dL Ur Leukocyte Esterase (NEGATIVE) Urine RBC (0-2/HPF) Urine WBC (0-5/HPF) Ur Epithelial Cells (NONE-FEW) Urine Bacteria (NEGATIVE) Blood Type Antibody Screen Crossmatch Med Orders - Current: Current Medications Fentanyl (Sublimaze) 50 mcg IVPUSH Q5M PRN PRN Reason: Pain (severe 7-10) Stop: 12/05/17 16:33 Ibuprofen (Motrin) 800 mg PO Q8H PRN PRN Reason: Pain Last Admin: 12/04/17 18:37 Dose: 800 mg Oxycodone/Acetaminophen (Percocet 325-5 Mg) 1 tab PO Q4H PRN PRN Reason: Pain Oxycodone/Acetaminophen (Percocet 325-5 Mg) 2 tab PO Q4H PRN PRN Reason: Pain Discontinued Medications Cefazolin Sodium (Ancef) Confirm Administered Dose 2 gm .ROUTE .STK-MED ONE Stop: 12/04/17 15:20 Cefazolin Sodium/Dextrose (Ancef) Confirm Administered Dose 2 gm IV .STK-MED ONE Stop: 12/04/17 14:50 Last Admin: 12/04/17 15:01 Dose: Not Given Ephedrine Sulfate (Ephedrine Sulfate) Confirm Administered Dose 50 mg .ROUTE .STK-MED ONE Stop: 12/04/17 15:29 Fentanyl (Sublimaze) Confirm Administered Dose 250 mcg .ROUTE .STK-MED ONE Stop: 12/04/17 15:20 Hydromorphone HCl (Dilaudid) 1 mg IM ONETIME ONE Stop: 12/04/17 14:49 Last Admin: 12/04/17 14:55 Dose: 1 mg Hydromorphone HCl (Dilaudid) Confirm Administered Dose 1 mg .ROUTE .STK-MED ONE Stop: 12/04/17 14:50 Last Admin: 12/04/17 15:01 Dose: Not Given Sodium Chloride (Normal Saline) 1,000 mls @ 999 mls/hr IV STAT ONE Stop: 12/04/17 11:43 Last Admin: 12/04/17 10:45 Dose: 999 mls/hr Doxycycline Hyclate 100 mg/ (Sodium Chloride) 100 mls @ 100 mls/hr IV Q12H [id number] Last Admin: 12/04/17 15:02 Dose: Not Given Cefazolin Sodium/Dextrose 2 gm (/ Premix) 50 mls @ 100 mls/hr IV ONETIME ONE Stop: 12/04/17 15:17 Last Admin: 12/04/17 15:01 Dose: 100 mls/hr Sodium Chloride (Normal Saline) Confirm Administered Dose 20 mls @ as directed .ROUTE .STK-MED ONE Stop: 12/04/17 15:20 Sodium Chloride (Normal Saline) 500 mls @ 999 mls/hr IV NOW STA Stop: 12/04/17 13:30 Last Admin: 12/04/17 13:00 Dose: 999 mls/hr Lidocaine (Xylocaine-Mpf 2%) Confirm Administered Dose 5 ml .ROUTE .STK-MED ONE Stop: 12/04/17 15:19 Methylergonovine Maleate (Methergine) 0.2 mg IM NOW STA Stop: 12/04/17 12:01 Last Admin: 12/04/17 12:18 Dose: 0.2 mg Methylergonovine Maleate (Methergine) 0.2 mg IM Q4H ONE Stop: 12/04/17 13:12 Last Admin: 12/04/17 13:30 Dose: 0.2 mg Methylergonovine Maleate (Methergine) Confirm Administered Dose 0.2 mg .ROUTE .STK-MED ONE Stop: 12/04/17 15:09 Midazolam HCl (Versed 1 Mg/Ml) Confirm Administered Dose 2 mg .ROUTE .STK-MED ONE Stop: 12/04/17 15:20 Misoprostol (Cytotec) Confirm Administered Dose 1,000 mcg .ROUTE .STK-MED ONE Stop: 12/04/17 15:08 Morphine Sulfate (Morphine) 2 mg IVPUSH ONETIME ONE Stop: 12/04/17 10:44 Last Admin: 12/04/17 10:55 Dose: 2 mg Morphine Sulfate (Morphine) Confirm Administered Dose 2 mg .ROUTE .STK-MED ONE Stop: 12/04/17 12:51 Last Admin: 12/04/17 14:01 Dose: Not Given Morphine Sulfate (Morphine) Confirm Administered Dose 2 mg .ROUTE .STK-MED ONE Stop: 12/04/17 13:47 Last Admin: 12/04/17 15:01 Dose: Not Given Morphine Sulfate (Morphine) 2 mg IVPUSH ONETIME ONE Stop: 12/04/17 13:01 Last Admin: 12/04/17 13:00 Dose: 2 mg Morphine Sulfate (Morphine) 2 mg IVPUSH ONETIME ONE Stop: 12/04/17 14:00 Last Admin: 12/04/17 13:30 Dose: 2 mg Ondansetron HCl (Zofran) 4 mg IVPUSH ONETIME ONE Stop: 12/04/17 10:45 Last Admin: 12/04/17 10:55 Dose: 4 mg Ondansetron HCl (Zofran) Confirm Administered Dose 4 mg .ROUTE .STK-MED ONE Stop: 12/04/17 15:19 Promethazine HCl (Phenergan) 12.5 mg IM ONETIME ONE Stop: 12/04/17 16:33 Propofol (Diprivan 20 Ml) Confirm Administered Dose 200 mg .ROUTE .STK-MED ONE Stop: 12/04/17 15:19 Rocuronium [place] (Zemuron) Confirm Administered Dose 100 mg .ROUTE .STK-MED ONE Stop: 12/04/17 15:19 Succinylcholine Chloride (Succinylcholine In Ns Pf) Confirm Administered Dose 200 mg .ROUTE .STK-MED ONE Stop: 12/04/17 15:19 Tranexamic Acid (Cyklokapron) Confirm Administered Dose 2,000 mg .ROUTE .STK- MED ONE Stop: 12/04/17 15:21 - Exam General: Alert, Oriented HEENT: Pupils Equal Lungs: Clear to Auscultation, Normal Respiratory Effort Cardiovascular: Regular Rate, Regular Rhythm GI/Abdominal Exam: Soft, Non-Tender Extremities: No Pedal Edema Skin: Warm Psy/Mental Status: Alert, Normal Affect, Normal Mood - Problem List & Annotations (1) Status post dilatation and curettage SNOMED Code(s): 599891453 Code(s): Z98.890 - OTHER SPECIFIED POSTPROCEDURAL STATES Status: Acute Current Visit: Yes (2) Incomplete SNOMED Code(s): 266667905 Code(s): O03.4 - INCOMPLETE SPONTANEOUS WITHOUT COMPLICATION Status: Acute Current Visit: Yes - Problem List Review Problem List Initiated/Reviewed/Updated: Yes - My Orders Last 24 Hours: Active Orders 24 hr Category Date Time Status Admission Status [Patient Status] [ADT] Routine ADT 12/04/17 13:10 Active Ambulate [RC] PER UNIT ROUTINE Care 12/04/17 16:35 Active Intake and Output [RC] PRN Care 12/04/17 16:35 Active Notify Provider Vital Signs [RC] PRN Care 12/04/17 16:38 Active Up With Assistance [RC] PER UNIT ROUTINE Care 12/04/17 16:35 Active Regular Diet [DIET] Diet 12/04/17 Dinner Active OB Transvaginal [US] Stat Exams 12/04/17 13:12 Taken Acetaminophen/oxyCODONE [Percocet 325-5 MG] Med 12/04/17 16:35 Active 1 tab PO Q4H PRN Acetaminophen/oxyCODONE [Percocet 325-5 MG] Med 12/04/17 16:35 Active 2 tab PO Q4H PRN Ibuprofen [Motrin] Med 12/04/17 16:39 Active 800 mg PO Q8H PRN fentaNYL [Sublimaze] Med 12/04/17 16:32 Active 50 mcg IVPUSH Q5M PRN Medication Discontinuation Instructions [OM.PC] Per Oth 12/04/17 16:38 Ordered Unit Routine Peripheral IV Discontinue [OM.PC] Routine Oth 12/04/17 16:35 Ordered Transfuse Red Blood Cells [COMM] Stat Oth 12/04/17 16:44 Ordered Resuscitation Status Routine Resus Stat 12/04/17 16:35 Ordered Medication Orders Fentanyl (Sublimaze) 50 mcg IVPUSH Q5M PRN PRN Reason: Pain (severe 7-10) Stop: 12/05/17 16:33 Ibuprofen (Motrin) 800 mg PO Q8H PRN PRN Reason: Pain Last Admin: 12/04/17 18:37 Dose: 800 mg Oxycodone/Acetaminophen (Percocet 325-5 Mg) 1 tab PO Q4H PRN PRN Reason: Pain Oxycodone/Acetaminophen (Percocet 325-5 Mg) 2 tab PO Q4H PRN PRN Reason: Pain - Assessment Assessment (Free Text/Narrative):: POD#1 s/p Suction dilatation and curettage for incomplete . s/p Had 2 units of RBCs, hgb 8.3 g/dl, patient is hemodynamically stable and afebrile. Clinically stable for discharge today. - Plan Plan (Free Text/Narrative):: Discharge instructions reviewed Nothing in the vagina for 2 weeks Notify physician of heavy bleeding- soaking through a pad every hour, fever of over 100.4, abnormal vaginal discharge or uncontrollable pain Needs to start Iron supplements BID for at least 4 weeks, she opted for OTC preps Prescription given for Augmentin and Ibuprofen Follow up at [facility] in 2 weeks
[2017-12-05 09:17] VITALS: BP 97/53
--- NOTE | 2017-12-05 09:17 | PCM48HPAN ---
Post Anesthesia Note - EVALUATION WITHIN 48HRS OF ANESTHETIC Vital Signs in Normal Range: Yes Patient Participated in Evaluation: Yes Respiratory Function Stable: Yes Airway Patent: Yes Cardiovascular Function Stable: Yes Hydration Status Stable: Yes Pain Control Satisfactory: Yes Nausea and Vomiting Control Satisfactory: Yes Mental Status Recovered: Yes Pulse Rate: 94 Resp Rate: 16 Temperature: 98.4 F Blood Pressure: 97/53
--- NOTE | 2017-12-05 18:31 | US ---
EXAM DATE: 12/04/17 PATIENT'S AGE: 32 Patient: ALLISON XIAO Facility: [place], [place] Site . Site : 1985 Study: US Pelvis [id number] 2:03:56 PM Ordering Physician: Doctor Virk Final Report: INDICATION: Abdominal pain. Vaginal bleeding. Recent miscarriage. Technique : Transvaginal pelvic ultrasound. FINDINGS: Uterus is prominently enlarged consistent with the recent gravid state measuring 12.5 x 6.0 x 6.9 cm. The right ovary measures 3.0 x 2.4 x 2.9 cm and left ovary measures and 4.9 x 2.3 x 2.1 cm. Very marked diffuse endometrial thickening with abnormal heterogeneous soft tissue within the endometrial canal consistent with a combination of soft tissue mass/endometrial thickening and hematoma related to the vaginal bleeding. There is an area of this soft tissue prominence in the endometrium that has hypervascularity. Findings would indicate that the changes are at least in part related to retained products of conception. Some of this soft tissue within the endometrium diffusely is undoubtedly related to hematoma also. No myometrial masses. 1.9 cm cyst or follicle right ovary. Blood flow confirmed to both ovaries. Remainder negative. IMPRESSION: 1. Marked heterogeneous abnormal soft tissue prominence within the endometrial canal with associated endometrial thickening with one focal area of hypervascularity. Findings likely related to combination of retained products of conception and hematoma/hemorrhagic products within the endometrium. 2. The uterus is markedly enlarged consistent with the recent gravid state. 3. 1.9 cm cyst or follicle right ovary. Ovaries otherwise unremarkable. Dictated by Fady Gould MD @ Dec 04 2017 2:28PM (Electronic Signature) Report Signed by Proxy. SONIDO
--- NOTE | 2017-12-06 11:20 | CONS ---
DATE OF CONSULTATION: 12/04/2017 DATE OF : 1985 PRIMARY CARE PHYSICIAN: None PCP Ms. Morrell is 32. She is a patient seen in our office. She had a blighted ovum at that time diagnosed by ultrasound. The patient elected to have expectant management. She declined a D and C at that time. She presented today to the emergency room with excessive vaginal bleeding and blood clot and passing tissue. I was consulted to evaluate the patient in the emergency room. At the time of my arrival, the patient was alert, oriented, and her vital sign was stable. There was no excessive vaginal bleeding. Lower abdominal examination essentially was normal, and speculum examination revealed that there was some small blood clot in the vagina, and that was removed. The cervical os was exposed and it was completely open. An Allis clamp tenaculum was used, and then ring forceps was used to sweep the endometrial cavity. Minimum amount of products of conception was removed at this time, and the bleeding was minimum from the patient. RECOMMENDATIONS: After that, I felt that the patient has passed most of her products of conception, and she does not need any D and E at this time. I am giving the patient 0.2 mg Methergine subcu, and I instructed the ER personnel to watch the patient for another 40-45 minutes, and if there was no excessive bleeding, the patient can go home. I instructed the patient if her bleeding is more than a period, either she can come to the ER or she can come and see me in the office tomorrow. Otherwise, she can schedule regular appointment for followup. The patient's blood type is A positive, so there is no need for RhoGAM. I explained this consultation to the ER doctors and the nurse practitioner, who is taking care of her in the ER at the time. KG / ALVARO /[id number]
== END 2017-12-05 09:10 | disposition home or self-care (01) ==
LOC: MW.ED 09:54 → MW.SDS 14:44 → MW.MS 18:00 → MW.SDS 12-05 09:10
PROVIDERS: ATTEND Obstetrics & Gynecology
DX: O03.4 Incomplete spontaneous abortion without complication (principal); Z88.2 Allergy status to sulfonamides
CPT/HCPCS: 36415; 59812; 76817; 80053; 81001; 84702; 85014; 85018; 85025; 86850; 86900; 86901; 86920; 86921; 86922; A9270; J0690; J1170; J2210; J2250; J2270; J2405; J3010; J7040; P9016; 01965; 36430; 88305; 96361; 96365; 96372; 96375; 96376; 99284; 99285-25; J2704

== ENCOUNTER 2019-09-11 08:40 | Day surgery (SDC) | payer OTHER ==
[~2019-09-11 08:40] MED LIST: Lactated Ringers 1,000 ML IV SCH
--- NOTE | 2019-09-11 09:07 | PCM.PREANE ---
Preanesthetic Assessment - Anesthesia/Transfusion/Family Hx Anesthesia History: Prior Anesthesia Without Reaction Other Type of Anesthesia Reaction Comment: Pt states she has been told in the past she is a "bad bleeder" during surg Family History of Anesthesia Reaction: No Transfusion History: Prior Transfusion Without Reaction Intubation History: Unknown - Review of Systems General: No Symptoms Pulmonary: No Symptoms Cardiovascular: No Symptoms Gastrointestinal: No Symptoms Neurological: No Symptoms Other: Reports: None - Physical Assessment Height: 5 ft 6.5 in Weight: 88.904 kg ASA Class: 2 Mental Status: Alert & Oriented x3 Airway Class: Mallampati = 1 Dentition: Reports: Normal Dentition Thyro-Mental Finger Breadths: 3 Mouth Opening Finger Breadths: 3 ROM/Head Extension: Full Lungs: Clear to Auscultation, Normal Respiratory Effort Cardiovascular: Regular Rate, Regular Rhythm - Allergies Allergies/Adverse Reactions: Allergies Allergy/AdvReac Type Severity Reaction Status Date / Time Sulfa (Sulfonamide Allergy Stomach Verified 09/05/19 12:40 Antibiotics) Upset - Blood Blood Available: No - Anesthesia Plan Pre-Op Medication Ordered: None - Acknowledgements Anesthesia Type Planned: Spinal (saddle block) Pt an Appropriate Candidate for the Planned Anesthesia: Yes Alternatives and Risks of Anesthesia Discussed w Pt/Guardian: Yes Pt/Guardian Understands and Agrees with Anesthesia Plan: Yes PreAnesthesia Questionnaire - Past Health History Medical/Surgical History: Denies Medical/Surgical History HEENT History: Reports: Other (See Below) Other HEENT History: wears glasses Cardiovascular History: Reports: None Respiratory History: Reports: None Gastrointestinal History: Reports: None Genitourinary History: Reports: None BLUE LEATHER SORTER History: Reports: Spontaneous , Other (See Below) Other OB/BYN History: Multiple miscarriages, ETOP x1 Musculoskeletal History: Reports: None Neurological History: Reports: Migraines Psychiatric History: Reports: None Endocrine/Metabolic History: Reports: Obesity/BMI 30+ Hematologic History: Reports: Blood Transfusion(s) Immunologic History: Reports: None Oncologic (Cancer) History: Reports: None Dermatologic History: Reports: None - Infectious Disease History Infectious Disease History: Reports: Chicken Pox - Past Surgical History Head Surgeries/Procedures: Reports: None HEENT Surgical History: Reports: Oral Surgery Cardiovascular Surgical History: Reports: None Respiratory Surgical History: Reports: None GI Surgical History: Reports: None Female Surgical History: Reports: D&C Other Female Surgeries/Procedures: D&C x3, ', and Endocrine Surgical History: Reports: None Neurological Surgical History: Reports: None Musculoskeletal Surgical History: Reports: None Oncologic Surgical History: Reports: None - SUBSTANCE USE Smoking Status *Q: Never Smoker Recreational Drug Type: Reports: Cocaine (not since 05/04), Marijuana/Hashish - HOME MEDS Home Medications: Home Meds Ascorbic Acid [Vitamin C] 1 tab.chew CHEW DAILY 09/05/19 [History] Folic Acid 1 mg PO DAILY 09/05/19 [History] Pnv No.95/Ferrous Fum/Folic AC [ Vitamin Tablet] 1 tab PO DAILY [History] - CURRENT (IN HOUSE) MEDS Current Meds: Current Medications Lactated Ringer's (Ringers, Lactated) 1,000 mls @ 125 mls/hr IV ASDIRECTED LAKHWINDER
[2019-09-11] MEDS ORDERED: Phenylephrine/Normal Saline 100 MCG/ML 10 ML Syringe ONE (09:23)
[2019-09-11] MEDS ORDERED: ePHEDrine 50 MG/ML SDV ONE (09:23)
[2019-09-11] MEDS ORDERED: Sodium Chloride 0.9% 20 ML ONE (09:24)
[2019-09-11] MEDS ORDERED: ceFAZolin/Dextrose,Iso-Osmotic 2 GM/50 ML Duplex Bag IV ONE (09:48)
[2019-09-11] MEDS ORDERED: Ondansetron 4 MG/2 ML SDV ONE (10:36)
[2019-09-11] MEDS ORDERED: Dexamethasone 4 MG/ML 5 ML MDV ONE (10:36)
--- NOTE | 2019-09-11 10:42 | PCM.OPNOTE ---
- General Post-Op/Procedure Note Date of Surgery/Procedure: 09/11/19 Operative Procedure(s): prophylactic cervical cerclage Findings: Cervix soft, 3 cm, internal os FT, prior to cerclage, post cerclage cervix is closed circumferentially. Pre Op Diagnosis: cervical incompetence 14 weeks. Post-Op Diagnosis: Same Anesthesia Technique: Spinal Primary Surgeon: Gala Hickman Secondary Surgeon: Maury Cantu Anesthesia Provider: Stefanie Dove Radic Pathology: none Fluid Replacement, Intraop: 1,200 EBL in mLs: 20 Complications: None Known Condition: Good
--- NOTE | 2019-09-11 11:25 | PCM.POSTAN ---
POST ANESTHESIA ASSESSMENT - MENTAL STATUS Mental Status: Alert, Oriented - VITAL SIGNS Vital Signs: Last Vital Signs Temp 36.6 C 09/11/19 09:00 Pulse 67 09/11/19 11:14 Resp 16 09/11/19 11:14 BP 80/51 L 09/11/19 11:14 Pulse Ox 100 09/11/19 11:14 - RESPIRATORY Respiratory Status: Respiratory Rate WNL, Airway Patent, O2 Saturation Stable - CARDIOVASCULAR CV Status: Pulse Rate WNL, Blood Pressure Stable - GASTROINTESTINAL GI Status: No Symptoms - PAIN Pain Score: 0 - POST OP HYDRATION Hydration Status: Adequate & Stable - OBSERVATIONS Free Text/Narrative:: No anesthesia problems
[2019-09-11] MEDS ORDERED: fentaNYL 100 MCG/2 ML SDV IVPUSH PRN (11:30)
--- NOTE | 2019-09-11 12:33 | OR ---
SURGEON: Gala Hickman M.D. DATE OF PROCEDURE: 09/11/2019 PREOPERATIVE DIAGNOSES: A 14-week intrauterine , cervical incompetence. POSTOPERATIVE DIAGNOSES: A 14-week intrauterine , cervical incompetence. PROCEDURE: Prophylactic cervical cerclage. PRIMARY SURGEON: Gala Hickman MD. MAINS AND SERVICE SUPERVISOR: Maury Cantu MD. ANESTHESIA: Spinal. ESTIMATED BLOOD LOSS: 20 mL. FLUIDS: 1200 mL of crystalloid. FINDINGS: Preoperatively, the cervix was 3 to 4 cm thick, internal os was fingertip. Postoperatively, cervix firmly closed with cerclage. COMPLICATIONS: None known. DISPOSITION: Stable to recovery. BRIEF HISTORY: This is a 34-year-old female. She is G6, P0. She has had one elective termination in 2001, first trimester losses in 2015 and 2017, and mid trimester losses at 21 weeks and 20 weeks in 2016 and 2017. Due to the mid trimester losses with a history consistent with cervical incompetence, she desires to proceed with a prophylactic cerclage. She is 14 weeks' gestation. She has had normal genetic studies. 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 She has undergone extensive counseling regarding the risks and benefits of cerclage. She understands that data cannot prove benefit unless there are three prior second-trimester losses. She does not want to try another without a cerclage as she was on Prometrium as well as serial cervical lengths with a normal cervical length a few days prior to her prior loss. I discussed the risk of causing an extremely with potential lifelong severe disabilities if the cerclage was to fail and also discussed regular surgical risks including bleeding and infection, risk of injury to bowel and bladder, risk of thrombosis, and risk of anesthesia. Understanding all these risks, she does desire to proceed with a prophylactic cervical cerclage. DESCRIPTION OF PROCEDURE: With the patient in dorsal lithotomy position, under adequate spinal analgesia, the perineum and vagina were prepped with Betadine and draped in the usual fashion for vaginal surgery. SCDs were in place. She had received 2 g of Ancef IV and an appropriate time-out was held. The bladder had been drained with a red Bhatt catheter. Weighted speculum was placed posteriorly. Vaginal sidewall retractors were utilized to identify the cervix. In this manner, the cervix was cleansed with Betadine. The anterior lip of the cervix was grasped with ring forceps and 1 Prolene was utilized in a circumferential fashion at the level of the vesical reflection placed in a pursestring fashion circumferentially around the cervix and met at 12 o'clock midline. A second suture was placed slightly cephalad to this, making sure that it was well below the level of the bladder reflection, but incorporating as much of the cervix as possible. Once both sutures were placed and tagged, the upper suture was tied with a finger in the cervix until the cervix was just closed beyond fingertip and then it was tied with two surgeon's knots followed by seven square knots. The second was tied in a similar fashion, so there were two sutures tied at 12 o'clock with approximately 3 cm length of tail on the suture. All of the instruments were removed from the vagina. Final sponge, needle, and instrument counts were reported as correct. There were no known complications. The patient was transferred to recovery in good condition. KRISTEN JOHN /[id number]
--- NOTE | 2019-09-11 13:11 | PCM48HPAN ---
Post Anesthesia Note - EVALUATION WITHIN 48HRS OF ANESTHETIC Vital Signs in Normal Range: Yes Patient Participated in Evaluation: Yes Respiratory Function Stable: Yes Airway Patent: Yes Cardiovascular Function Stable: Yes Hydration Status Stable: Yes Pain Control Satisfactory: Yes Nausea and Vomiting Control Satisfactory: Yes Mental Status Recovered: Yes Vital Signs: Last Vital Signs Temp 36.3 C 09/11/19 11:20 Pulse 72 09/11/19 12:00 Resp 16 09/11/19 12:00 BP 83/53 L 09/11/19 12:00 Pulse Ox 98 09/11/19 12:00 - COMMENTS/OBSERVATIONS Free Text/Narrative:: No anesthesia problems
[2019-09-11 13:37] VITALS: BP 100/65; PULSE 90
== END 2019-09-11 13:20 | disposition home or self-care (01) ==
LOC: MW.SDS 08:40
PROVIDERS: ATTEND Obstetrics & Gynecology
DX: O34.32 Maternal care for cervical incompetence, second trimester (principal); O09.292 Supervision of pregnancy with other poor reproductive or obstetric history, second trimester; O99.212 Obesity complicating pregnancy, second trimester; O99.89 Other specified diseases and conditions complicating pregnancy, childbirth and the puerperium; G43.909 Migraine, unspecified, not intractable, without status migrainosus; Z3A.14 14 weeks gestation of pregnancy; Z87.51 Personal history of pre-term labor; Z88.2 Allergy status to sulfonamides; Z68.31 Body mass index [BMI] 31.0-31.9, adult
CPT/HCPCS: 36415; 59320; 85027; J0690; J1100; J2370; J2405; J3010; J7120

== ENCOUNTER 2020-03-10 02:29 | Inpatient (IN) | payer OTHER ==
[2020-03-10] MEDS ORDERED: Sodium Chloride 0.9% 10 ML SDV IV PRN (03:27)
[2020-03-10] MEDS ORDERED: Ondansetron 4 MG/2 ML SDV IVPUSH PRN (03:27)
[2020-03-10] MEDS ORDERED: Sodium Chloride 0.9% 2.5 ML Syringe FLUSH PRN (03:27)
[2020-03-10] MEDS ORDERED: Carboprost Tromethamine 250 MCG/1 ML Amp IM PRN (03:27)
[2020-03-10] MEDS ORDERED: Misoprostol 200 MCG Tab PO PRN (03:27)
[2020-03-10] MEDS ORDERED: Nalbuphine 10 MG/1 ML Vial IVPUSH PRN (03:27)
[2020-03-10] MEDS ORDERED: Lidocaine 1% 50 ML MDV INJECT PRN (03:27)
[2020-03-10] MEDS ORDERED: Sodium Chloride 0.9% 10 ML Syringe FLUSH PRN (03:27)
[2020-03-10] MEDS ORDERED: Methylergonovine 0.2 MG/1 ML Amp IM PRN (03:27)
[2020-03-10] MEDS ORDERED: Tranexamic Acid 1,000 MG in Sodium Chloride 0.9% 100 ML IV PRN (03:27)
[2020-03-10] MEDS ORDERED: Water For Irrigation,Sterile 1,000 ML Container IRR PRN (03:27)
[2020-03-10] MEDS ORDERED: Oxytocin/0.9 % Sodium Chloride 30 UNIT/500 ML BAG IV SCH ×2 (03:30→09:00)
[2020-03-10] MEDS: Lactated Ringers 1,000 ML IV SCH ×3 (03:55→10:36)
[2020-03-10] MEDS: Butorphanol 1 MG/ML SDV IVPUSH PRN ×2 (03:57→07:54)
[2020-03-10] MEDS ORDERED: Ampicillin 2 GM in Sodium Chloride 0.9% 100 ML IV ONE (04:00)
[2020-03-10] MEDS: Ampicillin 1 GM in Sodium Chloride 0.9% 50 ML IV SCH ×2 (07:52→11:52)
[2020-03-10] MEDS ORDERED: Ropivacaine 0.2% PF 2 MG/ML 20 ML SDV ONE (09:32)
[2020-03-10] MEDS ORDERED: fentaNYL/Bupivacaine-NS 2 MCG/ML-0.125%/PF 100 ML Bag EPIDUR ONE (09:32)
--- NOTE | 2020-03-10 10:11 | PCM.PREANE ---
Preanesthetic Assessment - Procedure Proposed Procedure: labor epidural - Anesthesia/Transfusion/Family Hx Anesthesia History: Prior Anesthesia Without Reaction Other Type of Anesthesia Reaction Comment: Pt states she has been told in the past she is a "bad bleeder" during surg Family History of Anesthesia Reaction: No Transfusion History: Prior Transfusion Without Reaction Intubation History: Unknown - Review of Systems General: No Symptoms Pulmonary: No Symptoms Cardiovascular: No Symptoms Gastrointestinal: No Symptoms Neurological: No Symptoms Other: Reports: None - Physical Assessment Height: 5 ft 6.93 in Weight: 97.069 kg ASA Class: 2 Mental Status: Alert & Oriented x3 Airway Class: Mallampati = 1 Dentition: Reports: Normal Dentition Thyro-Mental Finger Breadths: 3 Mouth Opening Finger Breadths: 3 ROM/Head Extension: Full Lungs: Clear to Auscultation, Normal Respiratory Effort Cardiovascular: Regular Rate, Regular Rhythm - Lab Values: Laboratory Last Values WBC 15.39 K/uL (4.0-11.0) H 03/10/20 03:44 RBC 4.25 M/uL (4.30-5.90) L 03/10/20 03:44 Hgb 12.7 g/dL (12.0-16.0) 03/10/20 03:44 Hct 38.6 % (36.0-46.0) 03/10/20 03:44 MCV 90.8 fL (80.0-98.0) 03/10/20 03:44 MCH 29.9 pg (27.0-32.0) 03/10/20 03:44 MCHC 32.9 g/dL (31.0-37.0) 03/10/20 03:44 RDW Std Deviation 44.2 fl (28.0-62.0) 03/10/20 03:44 RDW Coeff of Trixie 13 % (11.0-15.0) 03/10/20 03:44 Plt Count 189 K/uL (150-400) 03/10/20 03:44 MPV 10.90 fL (7.40-12.00) 03/10/20 03:44 Nucleated RBC % 0.0 /100WBC 03/10/20 03:44 Nucleated RBCs # 0 K/uL 03/10/20 03:44 Blood Type A POSITIVE 03/10/20 03:44 Antibody Screen NEGATIVE 03/10/20 03:44 - Allergies Allergies/Adverse Reactions: Allergies Allergy/AdvReac Type Severity Reaction Status Date / Time Sulfa (Sulfonamide Allergy Stomach Verified 03/10/20 02:50 Antibiotics) Upset - Blood Blood Available: Yes Product(s) Available: PRBC - Anesthesia Plan Pre-Op Medication Ordered: None - Acknowledgements Anesthesia Type Planned: Epidural Pt an Appropriate Candidate for the Planned Anesthesia: Yes Alternatives and Risks of Anesthesia Discussed w Pt/Guardian: Yes Pt/Guardian Understands and Agrees with Anesthesia Plan: Yes PreAnesthesia Questionnaire - Past Health History Medical/Surgical History: Denies Medical/Surgical History HEENT History: Reports: Impaired Vision Other HEENT History: wears glasses Cardiovascular History: Reports: None Respiratory History: Reports: None Gastrointestinal History: Reports: GERD Genitourinary History: Reports: None LOGGER History: Reports: , Spontaneous , Therapeutic Other OB/BYN History: Multiple miscarriages. Musculoskeletal History: Reports: None Neurological History: Reports: Migraines Psychiatric History: Reports: None Endocrine/Metabolic History: Reports: None Hematologic History: Reports: Anemia, Blood Transfusion(s) Immunologic History: Reports: None Oncologic (Cancer) History: Reports: None Dermatologic History: Reports: None - Infectious Disease History Infectious Disease History: Reports: Chicken Pox - Past Surgical History HEENT Surgical History: Reports: Oral Surgery Female Surgical History: Reports: D&C Other Female Surgeries/Procedures: D&C x3, '17,'17 and '18; cervical cerclage Neurological Surgical History: Reports: None Oncologic Surgical History: Reports: None - SUBSTANCE USE Smoking Status *Q: Never Smoker Recreational Drug Use History: Yes Recreational Drug Type: Reports: Cocaine, Marijuana/Hashish - HOME MEDS Home Medications: Home Meds Ascorbic Acid [Vitamin C] 1 tab.chew CHEW DAILY 09/05/19 [History] Folic Acid 1 mg PO DAILY 09/05/19 [History] Pnv No.95/Ferrous Fum/Folic AC [ Vitamin Tablet] 1 tab PO DAILY [History] - CURRENT (IN HOUSE) MEDS Current Meds: Current Medications Butorphanol Tartrate (Stadol) 1 mg IVPUSH Q1H PRN PRN Reason: Pain Last Admin: 03/10/20 07:54 Dose: 1 mg Carboprost Tromethamine (Hemabate Ds) 250 mcg IM ASDIRECTED PRN PRN Reason: Post Hemorrhage Tranexamic Acid 1,000 mg/ (Sodium Chloride) 110 mls @ 660 mls/hr IV ONETIME PRN PRN Reason: Bleeding Lactated Ringer's (Ringers, Lactated) 1,000 mls @ 150 mls/hr IV ASDIRECTED LAKHWINDER Last Admin: 03/10/20 09:26 Dose: 999 mls/hr Oxytocin/Sodium Chloride (Oxytocin 30 Unit/500 Ml-Ns) 30 unit in 500 mls @ 999 mls/hr IV TITRATE LAKHWINDER Ampicillin Sodium 1 gm/ Sodium (Chloride) 50 mls @ 100 mls/hr IV Q4H PENDING SALE TO [facility] Last Admin: 03/10/20 07:52 Dose: 100 mls/hr Oxytocin/Sodium Chloride (Oxytocin 30 Unit/500 Ml-Ns) 30 unit in 500 mls @ 2 mls/hr IV TITRATE LAKHWINDER; Protocol Lidocaine HCl (Xylocaine 1%) 50 ml INJECT ONETIME PRN PRN Reason: Laceration repair Methylergonovine Maleate (Methergine) 0.2 mg IM ASDIRECTED PRN PRN Reason: Post Hemorrhage Misoprostol (Cytotec) 200 mcg PO ONETIME PRN PRN Reason: Post Hemorrhage Nalbuphine HCl (Nubain) 10 mg IVPUSH Q1H PRN PRN Reason: Pain (severe 7-10) Ondansetron HCl (Zofran) 4 mg IVPUSH Q6H PRN PRN Reason: Nausea/Vomiting Sodium Chloride (Saline Flush) 10 ml FLUSH ASDIRECTED PRN PRN Reason: Keep Vein Open Sodium Chloride (Saline Flush) 2.5 ml FLUSH ASDIRECTED PRN PRN Reason: Keep Vein Open Sodium Chloride (Normal Saline) 10 ml IV ASDIRECTED PRN PRN Reason: IV Use Sterile Water (Sterile Water For Irrigation) 1,000 ml IRR ASDIRECTED PRN PRN Reason: delivery Discontinued Medications Ampicillin Sodium 2 gm/ Sodium (Chloride) 100 mls @ 200 mls/hr IV ONETIME ONE Stop: 03/10/20 04:29 Last Admin: 03/10/20 03:55 Dose: 200 mls/hr Ropivacaine (Naropin 0.2%) Confirm Administered Dose 20 ml .ROUTE .STK-MED ONE Stop: 03/10/20 09:33
[2020-03-10] MEDS ORDERED: Hydrocortisone 2.5% Crm 30 GM Tube TOP PRN (15:32)
[2020-03-10] MEDS ORDERED: Ibuprofen 400 MG Tab PO PRN (15:32)
[2020-03-10] MEDS ORDERED: Acetaminophen 500 MG Tab PO PRN ×2 (15:32)
[2020-03-10] MEDS ORDERED: Witch Hazel Medicated Pads 40/Jar TOP PRN (15:32)
[2020-03-10] MEDS ORDERED: oxyCODONE 5 MG Tab PO PRN (15:32)
[2020-03-10] MEDS ORDERED: Lanolin 100% Cream 7 GM Tube TOP PRN (15:32)
[2020-03-10] MEDS ORDERED: Benzocaine/Menthol 20%-0.5% Spray 78 GM Cannister TOP PRN (15:32)
[2020-03-10] MEDS ORDERED: Docusate Sodium 100 MG Cap PO PRN (15:32)
[2020-03-10] MEDS ORDERED: Bisacodyl 10 MG Supp RECTAL PRN (15:32)
--- NOTE | 2020-03-10 15:40 | PCM.OPNOTE ---
- General Post-Op/Procedure Note Date of Surgery/Procedure: 03/10/20 Operative Procedure(s): /2nd MLL repaired Findings: Viable male APGARs 8, 9 weight 3800 gm. Spontaneous delivery intact placenta with 3V cord Pre Op Diagnosis: 40/3 week IUP. Labor Post-Op Diagnosis: Same Anesthesia Technique: Epidural Primary Surgeon: Courtney Nunez EBL in mLs: 250 Complications: none known Condition: Stable Free Text/Narrative:: Dictation [id number]
--- NOTE | 2020-03-10 16:58 | OR ---
SURGEON: Courtney Nunez M.D. DATE OF PROCEDURE: 03/10/2020 PREOPERATIVE DIAGNOSES: 1. A 40-3/7 weeks' intrauterine . 2. Active labor. POSTOPERATIVE DIAGNOSES: 1. A 40-3/7 weeks' intrauterine . 2. Active labor. PROCEDURE: Spontaneous vaginal delivery with a second-degree midline laceration repaired. PRIMARY SURGEON: Courtney Nunez MD ANESTHESIA: Epidural. ESTIMATED BLOOD LOSS: 250 mL. COMPLICATIONS: None known. FINDINGS: Viable male. score of 8 at one minute, 9 at five minutes. Weight of 3800 g. Spontaneous delivery, intact placenta, 3-vessel cord. Meconium-stained fluid noted. DISPOSITION: to nursery, mom in LDRP, stable. PROCEDURE DETAILS: Christopher is a 34-year-old, G6, P 0-2-3-0, at 40-3/7 weeks' gestational age, who presented on the morning of 03/10/2020 with regular contractions. On initial examination, she was found to be 4 cm. She is group B beta strep positive, therefore, was initiated on ampicillin prophylaxis. Was admitted for labor. Category 1 heart tones were observed. The patient continued to progress and shortly after 9 a.m. was found to be 6 cm, 90% effaced, minus 2 station. Underwent amniotomy, meconium-stained fluid was noted. The patient shortly thereafter underwent regional anesthesia in the form of epidural, became more comfortable. Continued to progress through the late morning, early afternoon hours. Shortly after 2 p.m., she was found to be complete, 100% effaced, +1 station. Began pushing efforts, pushed readily to a +3 station, I was called for delivery. Upon my arrival, the patient was placed in modified dorsal lithotomy position, was prepped and draped in the usual aseptic manner. Continued with pushing efforts. Was able to deliver infant's head atraumatically spontaneously, followed by anterior shoulder, posterior shoulder, and remainder of the body without difficulty. Infant's oropharynx and nares were bulb suctioned. was handed off to his mother with attending nursing staff at the side crying vigorously. After a delay, cord was clamped x2 and cut. Cord arterial, cord venous, cord blood sampling obtained. Light pressure was applied while the placenta was delivered spontaneously intact. Vigorous fundal uterine massage was then applied while 30 units of Pitocin was delivered in 500 mL of IV fluid. Upon inspection of cervix, vaginal sidewalls, and perineum, there was found to be a second-degree midline laceration, repaired using 3-0 Vicryl in the usual fashion. Hemostasis appeared evident. Uterus remained firm. Sponge, instrument, and needle count was correct. RONALD / ALVARO /[id number]
[2020-03-10] MEDS: Ibuprofen 800 MG Tab PO PRN (20:25)
--- NOTE | 2020-03-10 23:36 | PCM48HPAN ---
Post Anesthesia Note - EVALUATION WITHIN 48HRS OF ANESTHETIC Vital Signs in Normal Range: Yes Patient Participated in Evaluation: Yes Respiratory Function Stable: Yes Airway Patent: Yes Cardiovascular Function Stable: Yes Hydration Status Stable: Yes Pain Control Satisfactory: Yes Nausea and Vomiting Control Satisfactory: Yes Mental Status Recovered: Yes Vital Signs: Last Vital Signs Temp 36.2 C 03/10/20 21:14 Pulse 87 03/10/20 21:14 Resp 16 03/10/20 21:14 BP 106/65 03/10/20 21:14 Pulse Ox 97 03/10/20 21:14
[2020-03-11] MEDS: Ibuprofen 800 MG Tab PO PRN ×2 (10:29→16:56)
--- NOTE | 2020-03-11 12:16 | PCM.PNPP ---
- General Info Date of Service: 03/11/20 Subjective Update: Denies any complains today She is trying to Normal lochia Functional Status: Reports: Pain Controlled, Tolerating Diet, Ambulating, Urinating - Review of Systems General: Reports: No Symptoms HEENT: Reports: No Symptoms Pulmonary: Reports: No Symptoms Cardiovascular: Reports: No Symptoms Gastrointestinal: Reports: No Symptoms Genitourinary: Reports: No Symptoms Musculoskeletal: Reports: No Symptoms Skin: Reports: No Symptoms Neurological: Reports: No Symptoms Psychiatric: Reports: No Symptoms - General Info Date of Service: 03/11/20 - Patient Data Vital Signs - Most Recent: Last Vital Signs Temp 35.9 C L 03/11/20 07:15 Pulse 85 03/11/20 07:15 Resp 18 03/11/20 07:15 BP 98/64 03/11/20 07:15 Pulse Ox 98 03/11/20 07:15 Weight - Most Recent: 97.069 kg I&O - Last 24 Hours: Intake & Output 03/10/20 03/11/20 03/11/20 22:59 06:59 14:59 Output Total 1600 Balance -1600 Lab Results - Last 24 Hours: Laboratory Results - last 24 hr 03/10/20 03/11/20 Range/Units 15:08 05:28 Hgb 9.8 L (12.0-16.0) g/dL Hct 29.3 L (36.0-46.0) % Cord ABG pH 7.227 (7.18-7.38) Cord ABG Base Excess -4 (-10--2) Cord VBG pH 7.322 (7.25-7.45) Cord VBG Base Excess -4 (-10--2) Med Orders - Current: Current Medications Acetaminophen (Tylenol Extra Strength) 500 mg PO Q4H PRN PRN Reason: Pain Acetaminophen (Tylenol Extra Strength) 1,000 mg PO Q4H PRN PRN Reason: Pain Benzocaine/Menthol (Dermoplast Pain Relief 20%-0.5% [place]) 78 gm TOP ASDIRECTED PRN PRN Reason: Perineal Comfort Measure Last Admin: 03/10/20 20:28 Dose: 1 can Bisacodyl (Dulcolax) 10 mg RECTAL ONETIME PRN PRN Reason: Constipation Carboprost Tromethamine (Hemabate Ds) 250 mcg IM ASDIRECTED PRN PRN Reason: Post Hemorrhage Docusate Sodium (Colace) 100 mg PO BID PRN PRN Reason: Constipation Last Admin: 03/10/20 20:25 Dose: 100 mg Emollient Ointment (Lansinoh Hpa) 0 gm TOP ASDIRECTED PRN PRN Reason: Sore Nipples Last Admin: 03/10/20 20:27 Dose: 7 gram Hydrocortisone (Proctozone-Hc 2.5% Crm) 1 gm TOP 6XDAY PRN PRN Reason: Itching Last Admin: 03/10/20 20:33 Dose: 1 tube Tranexamic Acid 1,000 mg/ (Sodium Chloride) 110 mls @ 660 mls/hr IV ONETIME PRN PRN Reason: Bleeding Lactated Ringer's (Ringers, Lactated) 1,000 mls @ 150 mls/hr IV ASDIRECTED LAKHWINDER Last Admin: 03/10/20 10:36 Dose: 150 mls/hr Oxytocin/Sodium Chloride (Oxytocin 30 Unit/500 Ml-Ns) 30 unit in 500 mls @ 999 mls/hr IV TITRATE LAKHWINDER Oxytocin/Sodium Chloride (Oxytocin 30 Unit/500 Ml-Ns) 30 unit in 500 mls @ 2 mls/hr IV TITRATE LAKHWINDER; Protocol Last Infusion: 03/10/20 13:21 Dose: 6 munits/min, 6 mls/hr Ibuprofen (Motrin) 400 mg PO Q4H PRN PRN Reason: Pain Ibuprofen (Motrin) 800 mg PO Q6H PRN PRN Reason: Pain Last Admin: 03/11/20 10:29 Dose: 800 mg Lidocaine HCl (Xylocaine 1%) 50 ml INJECT ONETIME PRN PRN Reason: Laceration repair Methylergonovine Maleate (Methergine) 0.2 mg IM ASDIRECTED PRN PRN Reason: Post Hemorrhage Nalbuphine HCl (Nubain) 10 mg IVPUSH Q1H PRN PRN Reason: Pain (severe 7-10) Ondansetron HCl (Zofran) 4 mg IVPUSH Q6H PRN PRN Reason: Nausea/Vomiting Oxycodone HCl (Oxycodone) 5 mg PO Q2H PRN PRN Reason: Pain Sodium Chloride (Saline Flush) 10 ml FLUSH ASDIRECTED PRN PRN Reason: Keep Vein Open Sodium Chloride (Saline Flush) 2.5 ml FLUSH ASDIRECTED PRN PRN Reason: Keep Vein Open Sodium Chloride (Normal Saline) 10 ml IV ASDIRECTED PRN PRN Reason: IV Use Sterile Water (Sterile Water For Irrigation) 1,000 ml IRR ASDIRECTED PRN PRN Reason: delivery Aldo Jaffe (Tucks) 1 pad TOP ASDIRECTED PRN PRN Reason: comfort care Last Admin: 03/10/20 20:28 Dose: 1 tub Discontinued Medications Butorphanol Tartrate (Stadol) 1 mg IVPUSH Q1H PRN PRN Reason: Pain Last Admin: 03/10/20 07:54 Dose: 1 mg Ampicillin Sodium 2 gm/ Sodium (Chloride) 100 mls @ 200 mls/hr IV ONETIME ONE Stop: 03/10/20 04:29 Last Admin: 03/10/20 03:55 Dose: 200 mls/hr Ampicillin Sodium 1 gm/ Sodium (Chloride) 50 mls @ 100 mls/hr IV Q4H LAKHWINDER Last Admin: 03/10/20 11:52 Dose: 100 mls/hr Misoprostol (Cytotec) 200 mcg PO ONETIME PRN PRN Reason: Post Hemorrhage Ropivacaine (Naropin 0.2%) Confirm Administered Dose 20 ml .ROUTE .STK-MED ONE Stop: 03/10/20 09:33 - Infant Interaction Support Person: Significant Other - Recovery Exam Fundal Tone: Firm Fundal Level: At Umbilicus Fundal Placement: Midline Lochia Amount: Small Lochia Color: Rubra/Red Perineum Description: Other (see below) Other Perinuem Description: 2nd degree laceration Episiotomy/Laceration: Approximated Bladder Status: Voiding Urinary Elimination: Voided - Exam Quality Assessment: Supplemental Oxygen General: Alert, Oriented HEENT: Pupils Equal Neck: Supple Lungs: Clear to Auscultation, Normal Respiratory Effort Cardiovascular: Regular Rate, Regular Rhythm GI/Abdominal Exam: Normal Bowel Sounds Extremities: Normal Inspection Neurological: No New Focal Deficit Psy/Mental Status: Alert - Problem List & Annotations (1) Vaginal delivery SNOMED Code(s): 084484647 Code(s): O80 - ENCOUNTER FOR FULL-TERM UNCOMPLICATED DELIVERY Status: Acute Current Visit: Yes - Problem List Review Problem List Initiated/Reviewed/Updated: Yes - Assessment Assessment:: 34yo P1 s/p Good pain control - Plan Plan:: Discharge home today Pain control as needed
[2020-03-11 16:28] VITALS: BP 106/62; PULSE 99
== END 2020-03-11 18:57 | disposition home or self-care (01) | DRG 807 ==
LOC: MW.OBCHECK 02:29 → MW.OB 02:30 → MW.OBCHECK 03:27 → MW.OB 03:27 → OBSVTOIN 15:32 → MW.OB 19:20
PROVIDERS: ADMIT Obstetrics & Gynecology; ATTEND Obstetrics & Gynecology
PROC: 10E0XZZ Delivery of Products of Conception, External Approach (ICD-10-PCS; principal; 2020-03-10)
PROC: 0KQM0ZZ Repair Perineum Muscle, Open Approach (ICD-10-PCS; 2020-03-10)
PROC: 3E0R3BZ Introduction of Anesthetic Agent into Spinal Canal, Percutaneous Approach (ICD-10-PCS; 2020-03-10)
PROC: 10907ZC Drainage of Amniotic Fluid, Therapeutic from Products of Conception, Via Natural or Artificial Opening (ICD-10-PCS; 2020-03-10)
DX: O48.0 Post-term pregnancy (principal); Z37.0 Single live birth; Z3A.40 40 weeks gestation of pregnancy; O70.1 Second degree perineal laceration during delivery; O77.0 Labor and delivery complicated by meconium in amniotic fluid; O99.824 Streptococcus B carrier state complicating childbirth
CPT/HCPCS: 01967; 36415; 51702; 59025; 59409; 82803; 85014; 85018; 85027; 86592; 86850; 86900; 86901; A9270-GY; J0290; J0595; J2590; J2795; J7050; J7120